=== PATIENT | male | born 1990 | race Caucasian/White ===

== ENCOUNTER 2018-03-18 15:49 | Inpatient (IN) | payer MEDICAID, OTHER ==
[~2018-03-18] VITALS: Ht 177.8 cm; Wt 81.0 kg
[2018-03-18 16:44] LABS: BASOPHILS % (AUTO) 0.4 % (0.0-2.0); HEMATOCRIT 48.8 % (41-53); HEMOGLOBIN 16.6 g/dL (13.5-17.5); LYMPHOCYTES # (AUTO) 1.3 K/uL (1.0-4.8); LYMPHOCYTES % (AUTO) 24.2 % (22.0-44.0); MEAN CORPUSCULAR HEMOGLOBIN 30.7 pg (26.0-34.0); MEAN CORPUSCULAR VOLUME 90 fL (80-100); MONOCYTES # (AUTO) 0.3 K/uL (0.1-1.0); MONOCYTES % (AUTO) 5.7 % (2.0-9.0); NEUTROPHILS # (AUTO) 3.7 K/uL (1.8-7.7); NEUTROPHILS % (AUTO) 67.7 % (40.0-70.0); PLATELET COUNT (AUTO) 240 K/uL (150-450); RED CELL DISTRIBUTION WIDTH 13.9 % (11.5-14.5)
[2018-03-18 16:51] LABS: ANION GAP 9 mmol/L (8-16); CALCIUM, TOTAL 9.6 mg/dL (8.8-10.5); CARBON DIOXIDE 27 mmol/L (22-29); CHLORIDE 101 mmol/L (98-107); CREATININE 1.05 mg/dL (0.60-1.30); GLOMERULAR FILTR. RATE CALC > 60 mL/min (>60); GLUCOSE,RANDOM 112 mg/dL (70-110); POTASSIUM 3.9 mmol/L (3.5-5.1); SODIUM SERUM 137 mmol/L (136-145); UREA NITROGEN, BLOOD 9 mg/dL (7-18)
[2018-03-18 16:58] LABS: ALANINE AMINOTRANSFERASE 29 U/L (12-78); ALBUMIN 4.9 g/dL (3.4-5.0); ALKALINE PHOSPHATASE 78 U/L (46-116); ASPARTATE AMINOTRANSFERASE 19 U/L (15-37); BILIRUBIN,TOTAL 0.6 mg/dL (0.1-1.0)
[2018-03-18 17:06] LABS: AMPHET/METH SCREEN,URINE NEGATIVE (NEGATIVE); BARBITURATE SCREEN, URINE NEGATIVE (NEGATIVE); BENZODIAZEPINES SCREEN,URINE NEGATIVE (NEGATIVE); CANNABINOID SCREEN,URINE POSITIVE (NEGATIVE); COCAINE SCREEN,URINE NEGATIVE (NEGATIVE); METHADONE SCREEN, URINE NEGATIVE (NEGATIVE); OPIATE SCREEN,URINE NEGATIVE (NEGATIVE)
[2018-03-18 17:07] LABS: PHENCYCLIDINE SCREEN,URINE NEGATIVE (NEGATIVE)
[2018-03-18] MEDS ORDERED: HALOPERIDOL 5 MG TABLET PO PRN (20:30)
[2018-03-18] MEDS: LORazepam 2 MG TABLET PO PRN (20:37)
[2018-03-19] MEDS: LORazepam 2 MG TABLET PO PRN ×2 (01:27→17:30)
[2018-03-19] MEDS: ZOLPIDEM TARTRATE 10 MG TABLET PO PRN ×2 (01:27→20:57)
[2018-03-19 01:28] VITALS: BP 119/77
[2018-03-19] MEDS ORDERED: BISMUTH SUBSALICYLATE 262 MG CHEWABLE TABLET CHEW PRN (08:30)
[2018-03-19 08:39] VITALS: BP 136/78
[2018-03-19 09:30] LABS: CHOL/HDL RATIO 2.5 (4.2-7.3)
[2018-03-19] MEDS: ESCITALOPRAM OXALATE 10 MG TABLET PO SCH (10:06)
[2018-03-19 16:00] VITALS: BP 123/67
[2018-03-20 06:29] VITALS: BP 126/85
[2018-03-20 08:11] VITALS: BP 126/74
[2018-03-20] MEDS: LORazepam 2 MG TABLET PO PRN (08:21)
[2018-03-20] MEDS: ESCITALOPRAM OXALATE 10 MG TABLET PO SCH (08:21)
[2018-03-20] MEDS ORDERED: ESCI10TA PO (13:07)
== END 2018-03-20 15:00 | disposition home or self-care (01) | DRG 751 ==
LOC: EMS 15:51 → B3A 22:37
PROVIDERS: ADMIT Psychiatry & Neurology Child & Adolescent Psychiatry; ATTEND Psychiatry & Neurology Child & Adolescent Psychiatry
DX: F33.2 Major depressive disorder, recurrent severe without psychotic features (principal); R45.851 Suicidal ideations; F12.90 Cannabis use, unspecified, uncomplicated
CPT/HCPCS: 99285; G0480